=== PATIENT | male | born 1960 | race Caucasian/White ===

== ENCOUNTER 2018-04-22 16:17 | Inpatient (IN) ==
--- NOTE | 2018-04-22 16:26 | Emergency Department Report ---
Asthma HPI - General Stated Complaint: low oxygen <JanuaryRaul M - 04/22/18 18:52> Time Seen by Provider: 04/22/18 16:26 <JanuaryRaul - 04/22/18 18:52> Source: patient <Manpreet Mattson Q - 04/22/18 18:21> Mode of arrival: ambulatory <Manpreet Mattson Q - 04/22/18 18:21> Limitations: no limitations <Manpreet Mattson - 04/22/18 18:21> - History of Present Illness HPI Narrative: She is a 57-year-old male presents emergent department for evaluation of shortness of air. Patient last visit in the ER in November, at that time was diagnosed with COPD, however patient states he is unaware of that. Patient uses no control medications are inhalers at home. Patient does state he has a history of CHF and Dr. Sands is been recently turning of his diuretic, last was several weeks ago. Patient showed up today for pulmonary function testing on arrival on room air patient was 70%, patient was given albuterol treatments and Lasix on O2 however at 2 L by nasal cannula literally able to get his oxygen saturations up to 85%. Patient was referred to the ER for further evaluation. Patient states he feels like he did his normal baseline he's been short of air for weeks. Patient denies any chest pain or cough fevers or chills placed on 4 L by nasal cannula to maintain O2 sats greater than 90% <Manpreet Mattson Q - 04/22/18 18:21> - Related Data Home Medications Medication Instructions Recorded Confirmed Pantoprazole Sodium 20 mg PO ACB #30 03/16/16 04/22/18 Allopurinol [Zyloprim] 200 mg PO DAILY 11/22/17 04/22/18 Amlodipine [Norvasc] 10 mg PO DAILY 11/22/17 04/22/18 Aspirin [Adult Low Dose Aspirin EC] 81 mg PO DAILY 11/22/17 04/22/18 Celecoxib 200 mg PO DAILY 11/22/17 04/22/18 Furosemide [Lasix 20 mg Tab] 40 mg PO DAILY 11/22/17 04/22/18 Simvastatin [Zocor] 10 mg PO HS 11/22/17 04/22/18 Tramadol [Ultram] 50 mg PO QID PRN 11/22/17 04/22/18 Amoxicillin/Potassium Clav 1 each PO BID 04/22/18 04/22/18 [Amox-Clav 875-125 mg Tablet] Benazepril HCl 10 mg PO DAILY 04/22/18 04/22/18 <January,Raul 04/22/18 18:52> Allergies Allergy/AdvReac Type Severity Reaction Status Date / Time No Known Drug Allergies Allergy Unknown Verified 04/22/18 16:46 <January,Raul 04/22/18 18:52> Review of Systems Constitutional: Denies: fever, chills, weakness <Manpreet Mattson Q - 04/22/18 18 :21> Eyes: Denies: eye pain, eye discharge, vision change <Manpreet Mattson Q - 18:21> ENT: Denies: ear pain, throat pain, dental pain <Manpreet Mattson Q - 04/22/18 18 :21> Cardiovascular: Reports: dyspnea on exertion. Denies: chest pain, palpitations <Manpreet Mattson Q - 04/22/18 18:21> Respiratory: Reports: dyspnea. Denies: cough, wheezes <Manpreet Mattson Q - 03/04 18:21> Gastrointestinal: Denies: abdominal pain, nausea, vomiting <Manpreet Mattson Q - 04/22/18 18:21> Neurological: Denies: headache <Manpreet Mattson Q - 04/22/18 18:21> Psychiatric: Denies: anxiety, depression <Manpreet Mattson Q - 04/22/18 18:21> Endocrine: Denies: fatigue, heat or cold intolerance <Manpreet Mattson Q - 18:21> [facility] Patient Stated Medical History Congestive Heart Failure Yes Hypertension Yes Chronic Obstructive Pulmonary Yes Disease (COPD) Sleep Apnea Yes: no cpap Other Respiratory Yes: SYMPTOMS OF SLEEP APNEA Gastroesophageal Reflux Yes Disease Osteoarthritis Yes Other Musculoskeletal Yes: GOUT MRSA Yes: HX OF LEG <January,Raul 04/22/18 18:52> Medical History Updates: HTN. HL. GERD. Gout. Osteoarthritis. CHF. CAD < Manpreet Mattson Q - 04/22/18 16:26> - Social History Smoking status: Never smoker <Manpreet Mattson Q - 04/22/18 16:26> second hand exposure: No <Manpreet Mattson Q - 04/22/18 16:26> Substance use type: does not use <Manpreet Mattson Q - 04/22/18 16:26> Alcohol intake frequency: does not drink <Manpreet Mattson Q - 04/22/18 16:26> Does patient use chewing tobacco?: No <Prashant Mattsonn Q - 04/22/18 16:26> Physical Exam - General General appearance: alert <Prashant Mattsonn Q - 04/22/18 18:21> - ENT ENT exam: Present: normal oropharynx, mucous membranes moist, TM's normal bilaterally <Prashant Mattsonn Q - 04/22/18 18:21> - Neck Neck exam: Present: trachea midline. Absent: tenderness <Prashant Mattsonn Q - 18:21> - Chest Chest inspection: Present: symmetric chest wall rise. Absent: tenderness < Prashant Mattsonn Q - 04/22/18 18:21> - Respiratory Respiratory exam: Present: wheezes, accessory muscle use, prolonged expiratory phase. Absent: respiratory distress, stridor <Prashant Mattsonn Q - 04/22/18 18: 21> - Cardiovascular Cardiovascular exam: Present: regular rate, normal rhythm, normal heart sounds <Prashant Mattsonn Q - 04/22/18 18:21> - Abdominal Exam Abdominal exam: Present: soft. Absent: distention <Prashant Mattsonn Q - 18:21> - Skin Skin exam: Present: warm, dry <Prashant Mattsonn Q - 04/22/18 18:21> - Neurological Exam Neurological exam: Present: alert, oriented X3 <Manpreet Mattson Q - 04/22/18 18: 21> - Psychiatric Psychiatric exam: Present: normal affect, normal mood <Prashant Mattsonn Q - 04/22 18:21> Course - Consultations Consultation #1: Shakeel Telemed: Will admit for COPD exacerbation and new O2 requirement. <JanuaryJoseRaul - 04/22/18 18:50> Time: 18:44 <January,Raul - 04/22/18 18:47> Vital Signs Temperature 98.6 F 04/22/18 16:19 Pulse Rate 80 04/22/18 16:19 Respiratory Rate 28 H 08/06/18 16:19 Blood Pressure 134/61 04/22/18 16:19 Pulse Oximetry 82 L 04/22/18 16:19 Temperature 98.6 F 04/22/18 16:19 Pulse Rate 72 04/22/18 18:00 Respiratory Rate 20 04/22/18 18:10 Blood Pressure 134/63 04/22/18 17:30 Pulse Oximetry 95 04/22/18 18:10 <JanuaryRaul 04/22/18 18:52> Dyspnea - MDM Narrative Medical decision making narrative: Pt discussed with Shakeel Kelly; will admit for new O2 req and COPD exacerbation. No evidence of PE. <JanuaryRaul - 04/22/18 18:52> She does have received a total of 3 DuoNeb Solu-Medrol 125. Laboratories within became more was COPD exacerbation, rather than a CHF issue. Patient's troponin is negative. Patient originally improved was able to turn on 2 L by nasal cannula, however after going to radiology patient had a be turned back up to 3 L by nasal cannula. 3rd DuoNeb was ordered at that time. Case turned over to Dr. Raul Squires at 1820. <Manpreet Mattson - 04/22/18 18:21> - Differential Diagnosis Differential diagnosis: Likely: PE, Pneumonia, COPD exacerbation, Pulmonary edema systolic, Pulmonary edema dystolic, Pneumothorax <JanuaryRaul 18:52> - Medical Records Attestation: I reviewed the patient's medical records. <JanuaryRaul 04/22 18:52> I reviewed the patient's medical records. <Manpreet Mattson - 04/22/18 18:21> - Lab Data Attestation: I reviewed the patient's lab results. <JanuaryRaul 04/22/18 18:52> I reviewed the patient's lab results. <Manpreet Mattson - 04/22 18:21> Result diagrams: 04/22/18 16:50 04/22/18 16:50 <JanuaryRaul - 04/22/18 18:52> Lab Results 04/22/18 04/22/18 04/22/18 Range/Units 16:50 16:50 16:50 WBC 8.9 (4.5-11.0) T/MM3 RBC 4.85 (4.50-5.90) M/MM3 Hgb 13.9 (13.5-17.5) GM/DL Hct 44.7 (41-53) % MCV 92.2 (80-100) UM3 MCH 28.7 (26-34) UUG MCHC 31.1 (31-37) GM/DL RDW Std Deviation 49.9 (36.9-50.2) FL Plt Count 241 (130-400) T/MM3 MPV 9.3 L (9.4-12.4) UM3 Immature Gran % (Auto) 0.3 (0.0-0.5) % Neut % (Auto) 75.6 H (33-66) % Lymph % (Auto) 15.0 L (23-45) % Hudson % (Auto) 6.9 (0-9.0) % Eos % (Auto) 2.0 (0-4) % Baso % (Auto) 0.2 (0-2) % Neut # (Auto) 6.7 (1.8-7.7) T/MM3 Lymph # (Auto) 1.3 (1-4.8) T/MM3 Hudson # (Auto) 0.6 (0-0.8) T/MM3 Eos # (Auto) 0.2 (0-0.5) T/MM3 Baso # (Auto) 0.0 (0-0.2) T/MM3 Abs Immat Gran (auto) 0.03 (0.00-0.03) T/MM3 D-Dimer 548 H (0-230) NG/ML Turbidity < 20 (0-20) Sodium 149 H (136-146) MEQ/L Potassium 4.3 (3.6-5) MEQ/L Chloride 104 (98-107) MEQ/L Carbon Dioxide 37 H (22-30) MEQ/L Anion Gap 8 (5-15) meq/L BUN 17.0 (9-20) MG/DL Creatinine 0.9 (0.8-1.5) mg/dL Estimated Creat Clear 138 (>50) mL/min GFR Calculation 87 (>60) mL/min BUN/Creatinine Ratio 19 (6-26) RATIO Glucose 113 H (75-110) MG/DL Calculated Osmolality 289 H (261-280) MOSM/KG Calcium 8.7 (8.4-10.2) MG/DL Total Bilirubin 0.50 (0.20-1.30) MG/DL Icterus Index < 2 (0-7) AST 25 (17-59) U/L ALT 19 (1-50) U/L Alkaline Phosphatase 64 (38-126) U/L Troponin I < 0.012 (0-0.12) ng/ml NT-Pro-B Natriuret Pep 264 H (0-175) pg/mL Total Protein 6.7 (6.3-8.2) g/dL Albumin 3.7 (3.5-5.0) g/dL Globulin 3.0 (2.4-3.6) G/DL Albumin/Globulin Ratio 1.2 (1.1-2.2) RATIO Specimen Hemolysis < 15 (0-25) <04/22/18 18:52> - Radiology Data Attestation: I reviewed the patient's radiology results. <03/04 18:52> I reviewed the patient's radiology results. <[place] tap[place] 04/22/18 18:21> CTA: FINDINGS: Pulmonary arteries: Unremarkable. No pulmonary embolism. Aorta: Mild aortic calcifications. No thoracic aortic aneurysm. Lungs: Mild bibasilar dependent atelectasis. No mass. Pleural space: Unremarkable. No significant effusion. No pneumothorax. Heart: Mild to moderate coronary artery calcifications. No significant pericardial effusion. No evidence of RV dysfunction. Bones/joints: No acute fracture. No dislocation. Multilevel degenerative changes of the visualized spine. Soft tissues: Unremarkable. Lymph nodes: Unremarkable. No enlarged lymph nodes. Other findings: Visualized structures of the upper abdomen are unremarkable. IMPRESSION: 1. No CTA evidence of pulmonary embolism. 2. Mild to moderate coronary artery calcifications. 3. Other chronic findings, as above. <04/22/18 18:52> No obvious infiltrates, similar to prior chest x-ray <Manpreet Mattson 04/22/18 18:21> Disposition Clinical Impression: Hypoxemia, COPD exacerbation <04/22/18 18:50> Disposition: 02 To [facility] <04/22/18 18:52> Print Language: Mauritanian <04/22/18 18:50> Condition: Improved <04/22/18 18:50> Instructions: <04/22/18 18:52> Prescriptions: No Action Pantoprazole Sodium 20 mg PO ACB #30 Tramadol [Ultram] 50 mg PO QID PRN PRN Reason: Pain Celecoxib 200 mg PO DAILY Simvastatin [Zocor] 10 mg PO HS Furosemide [Lasix 20 mg Tab] 40 mg PO DAILY Amlodipine [Norvasc] 10 mg PO DAILY Allopurinol [Zyloprim] 200 mg PO DAILY Benazepril HCl 10 mg PO DAILY Amoxicillin/Potassium Clav [Amox-Clav 875-125 mg Tablet] 1 each PO BID Aspirin [Adult Low Dose Aspirin EC] 81 mg PO DAILY <eb 04/22/18 18:52> Referrals: Gregory Sands II, MD [Primary Care Provider] - <eb 04/22/18 18:52> Forms: <04/22/18 18:52> Time of Disposition: 18:50 <eb 04/22/18 18:50> - Seen By: physician <eb 04/22/18 18:50>
[2018-04-22] MEDS ORDERED: ALBUTEROL/IPRATROPIUM 2.5mg-0.5mg/3ml NEB AEROSOL ONE ×2 (16:40→18:03)
[2018-04-22] MEDS ORDERED: METHYLPREDNISOLONE SOD SUCC 125mg/2ml INJECTION IM ONE (17:18)
[2018-04-22] MEDS ORDERED: METHYLPREDNISOLONE SOD SUCC 125mg/2ml INJECTION IVP ONE (17:22)
[2018-04-22] MEDS: SALINE FLUSH 10ml SYRINGE IVF PRN ×2 (17:26→22:33)
[2018-04-22] MEDS ORDERED: SALINE FLUSH 10ml SYRINGE ONE (17:29)
[2018-04-22] MEDS ORDERED: IOHEXOL 350mg/ml 75ml INJECTION ONE (17:29)
[2018-04-22] MEDS ORDERED: IOHEXOL 350mg/ml 50ml INJECTION ONE (17:51)
[2018-04-22] MEDS ORDERED: AZITHROMYCIN 250 MG TABLET PO ONE (19:32)
[2018-04-22] MEDS ORDERED: ONDANSETRON 4 MG/2 ML INJECTION IVP PRN (19:32)
--- NOTE | 2018-04-22 20:17 | History & Physical Report ---
History of Present Illness Date: 04/23/18 Chief complaint: short of breath HPI: Patient seen via telemedicine with nursing assistance on 04/22/2018 Mr. Esposito is a 57yo man with h/o essential HTN, class 3 obesity, dyslipidemia , DJD s/p bilateral knee replacements, and gout who has had YANEZ for months and was in PCPs office today for it. Had ED visit earlier in the year with presumed COPD with FEV1 today 1.35L and FVC 2.34L more consistent with a restrictive process due to obesity, but wheezing so obstruction evident as well (small airway testing results not known by me). No chest pain, fevers, chills, or cough. No nausea. No medication changes except furosemide increase to 60mg PO daily for LE edema, and started on antibiotic for said MRSA infection from cx. Review of Systems All systems PM: 10-point ROS was reviewed, no additional remarkable complaints except Past Medical History Medical History Updates: HTN. HL. GERD. Gout. Osteoarthritis. CHF. CAD Family History Updates: jamal at 90 of "old age". 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) Does patient use chewing tobacco?: No Medications Home Medications Medication Instructions Recorded Confirmed Type Pantoprazole Sodium 20 mg PO ACB #30 03/16/16 04/22/18 History Allopurinol [Zyloprim] 200 mg PO DAILY 11/22/17 04/22/18 History Amlodipine [Norvasc] 10 mg PO DAILY 11/22/17 04/22/18 History Aspirin [Adult Low Dose Aspirin EC] 81 mg PO DAILY 11/22/17 04/22/18 History Celecoxib 200 mg PO DAILY 11/22/17 04/22/18 History Furosemide [Lasix 20 mg Tab] 40 mg PO DAILY 11/22/17 04/22/18 History Simvastatin [Zocor] 10 mg PO HS 11/22/17 04/22/18 History Tramadol [Ultram] 50 mg PO QID PRN 11/22/17 04/22/18 History Amoxicillin/Potassium Clav 1 each PO BID 04/22/18 04/22/18 History [Amox-Clav 875-125 mg Tablet] Benazepril HCl 10 mg PO DAILY 04/22/18 04/22/18 History Allergies Allergy/AdvReac Type Severity Reaction Status Date / Time No Known Drug Allergies Allergy Unknown Verified 04/22/18 16:46 Exam Vital Signs: Temperature 96.4 F L 04/22/18 19:22 Pulse Rate 66 04/22/18 19:22 Respiratory Rate 24 04/22/18 19:22 Blood Pressure 148/73 H 04/22/18 19:22 Pulse Oximetry 3 L 04/22/18 19:22 Telemetry Rhythm: Sinus Rhythm Height/Weight/BMI: Height 1.78 m Weight 163.4 kg - Constitutional Present: no acute distress - Routine HEENT Exam Head: Present: normocephalic, atraumatic Eye: Present: EOMI - Routine Respiratory Exam Comments: symmetrical effort with bilateral expiratory wheezing - Routine Cardiovascular Exam Present: RRR, S1, S2, no murmur - Routine Abdominal Exam Present: soft, normoactive bowel sounds - Routine Extremities Exam Present: edema. Absent: cyanosis, clubbing - Routine Neurological Exam Present: alert, oriented X3 Results - Labs CBC & Chem 7: 04/22/18 16:50 04/23/18 04:07 Assessment and Plan Assessment and Plan: 1. AECPD--admit to inpatient with solumedrol, duoneb, see below. Azithromycin per standard and note with bicarb elevation will check vbg. May need pulm consult re not only AVNI but obesity hypoventilation syndrome ?Trilogy. 2. Hypoxia POA-- supp cautiously with goal 90-97% SpO2 with likely CO2 retention. 3. Class 3 obesity BMI pending. Must lose weight. ?bariatric candidate ultimately? 4. Essential HTN--same meds. 5. Dyslipidemia on statin. 6. DJD s/p BTKAs 7. Gout on allopurinol 8. ?MRSA leg--continue prior abx if can confirm. DVT Prophylaxis: SCD's, Lovenox Resuscitation Status: Full Code - Physician Narrative Physician: Chela Staton MD Narrative: Date: 04/23/18 Time: 10:40 AM I have seen and examined the patient independently. I have reviewed the H&P above. Please see my additions below. Chief complaint: Low oxygen level History of present illness: The patient is a 57-year-old man with chronic dyspnea on exertion since this past winter. Had worsened over the past month and he came in for pulmonary function test yesterday at [facility]. It sounds like he was noted to be hypoxic and was sent to the emergency room. In the ER he underwent a chest x-ray which was essentially normal and a CTA of the chest which was only able to look at the large vessels but could not look at the smaller pulmonary arteries. No PE was seen. The patient denied any cough other than yesterday after the pulmonary function test. He states he's been sleeping in a recliner since last May when his mother moved in with him after his father's . He states he slept in a recliner because he wanted to be on the same floor as his mother but then he also noted that he slept better in the recliner. He has chronic lower extremity edema right leg worse than left and his right leg has been seeping recently. He was initially placed on Bactrim and then more recently on Augmentin. He denies any fevers chills or sweats. He thinks he had a wound culture as an outpatient. He denies any chest pains or palpitations. He denies any lightheadedness or syncope. He denies any history of DVT or PE. He denies any previous heart or lung issues. He states that last week he was very short of breath with exertion and sat down in a chair and it took a long time for his shortness of breath to resolve. He states he almost called 911 but then his symptoms improved. He then saw his primary care physician, Dr. Sands who referred him for pulmonary function testing. Comprehensive review of systems: He has some pain where he has wounds on his right lower extremity. He does snore loudly. He has some occasional night sweats. Otherwise cooperative review of systems is negative other than the above in history of present illness. Past medical history: Pneumonia in the winter of 2018, not requiring hospitalization. Hypertension. Hyperlipidemia. GERD. Gout. Osteoarthritis. Chronic lower extremity edema, likely secondary to venous stasis. History of lower extremity wounds for which she has gone to the wound care center Echocardiogram 01/10/2018 with chordal JARRET with increased for velocity of 2 ms through the LVOT during Valsalva. Normal systolic function with EF of 55-60% Myocardial perfusion stress test on 01/10/2018 was essentially normal and recommendations were "no changes" Past surgical history: Colonoscopy 02/18/2018 for hyperplastic polyp, EGD in March 2016 revealing mild gastritis, attempted repair of a left fifth toe fracture which was unsuccessful. Bilateral carpal tunnel surgery. Bilateral knee replacement. Hernia repair. Medications are reviewed. He states he is also on escitalopram and metoprolol. I 've asked his nurse to update his med list Allergies: No known drug allergies Social history: The patient states he has never smoked. He does use chewing tobacco. He is single. 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 Family history: Father had hypertension and CHF and at age 90. Mother has hypertension and dementia Physical exam: Afebrile, O2 sat yesterday was 82% on 2 L requiring increased O2 to 4 L. Most recently O2 sat is 90% on 2 L. Blood pressure 149/71. Pulse 80. Temperature 98.1 In general he is alert and oriented and in no acute distress. HEENT reveals sclerae to be anicteric, pupils are equal, or Dilip moist. Neck is supple and obese. He has mild carotid bruits. Cardiovascular reveals a regular rate and rhythm with a 2/6 systolic murmur. Chest is clear to auscultation bilaterally. Abdomen is soft, obese, nontender, nondistended with positive bowel sounds. Extremities reveal +1-2 lower extremity edema of the right leg. He has skin breakdown all along the anterior hearn and posterior calf. He has chronic venous stasis changes of the bilateral lower extremities. Left lower should be reveals trace to +1 edema. No skin breakdown on the left leg. Neurologic reveals him to be alert and oriented 3. No focal deficits. ABG reveals pH of 7.38, PCO2 58, PO2 62 on 2 L. D-dimer elevated at 548. Basic metabolic profile today is normal other than glucose of 178. Troponin yesterday was 0.012. ProBNP was 264 which is mildly elevated. CTA chest 04/22/2018 Pulmonary arteries: Exam is diagnostic to the main pulmonary arterial level. There is no large or central saddle embolus. The segmental and subsegmental pulmonary arteries cannot be well evaluated due to contrast bolus. Other findings: No acute pneumonia, pleural effusion or pneumothorax. No concerning pulmonary nodules or masses. The central airways are patent. No axillary or mediastinal lymphadenopathy. Heart size is normal. Coronary artery calcifications. No pericardial effusion. The upper abdomen shows no acute findings. Impression: No large or central pulmonary embolus. Impression Hypoxic and hypercapnic respiratory failure, likely chronic, unknown how much is acute Chronic dyspnea, worsening over the past 1 month Possible sleep apnea versus obesity hypoventilation syndrome Chronic lower extremity edema likely secondary to venous stasis Right lower extremity wounds with drainage Morbid obesity Hypertension Osteoarthritis Gout Hyperglycemia-likely worsened with steroids Plan Consult Dr. Ann for respiratory failure with hypoxia and hypercapnia. I think the patient would likely benefit from BiPAP. Due to the patient's elevated d-dimer and CTA which did not look at the smaller arteries, will check venous Doppler of the legs. If negative for DVT will consider repeat CTA Place on telemetry Check EKG Discontinue steroids, the patient is a lifelong nonsmoker, doubt COPD obtain results of pulmonary function testing done yesterday Consult wound and skin regarding skin breakdown on the right lower extremity Obtain wound culture results if available Update med list Check Accu-Cheks and hemoglobin A1c regarding hyperglycemia Dietary consult Patient may benefit from a different antihypertensive other than Norvasc because of his lower extremity edema BMP and CBC tomorrow Hospital Course Summary Disclaimer: The visit summary below is not to be considered part of the above Progress Note.
[2018-04-22 20:20] VITALS: BMI 50.8
[2018-04-22] MEDS: SIMVASTATIN 10 MG TABLET PO SCH (21:31)
[2018-04-22] MEDS: TRAMADOL 50 MG TABLET PO PRN (22:32)
[2018-04-22] MEDS: METHYLPREDNISOLONE SOD SUCC 125mg/2ml INJECTION IVP SCH (22:33)
[2018-04-22] MEDS: ALBUTEROL/IPRATROPIUM 2.5mg-0.5mg/3ml NEB AEROSOL SCH (22:44)
[2018-04-22] MEDS ORDERED: METHYLPREDNISOLONE SOD SUCC IV ONE (23:00)
[2018-04-22] MEDS ORDERED: NS IV ONE (23:00)
[2018-04-23] MEDS: ALBUTEROL/IPRATROPIUM 2.5mg-0.5mg/3ml NEB AEROSOL SCH ×6 (02:19→23:53)
[2018-04-23] MEDS: METHYLPREDNISOLONE SOD SUCC 125mg/2ml INJECTION IVP SCH ×2 (02:35→09:04)
[2018-04-23] MEDS: TRAMADOL 50 MG TABLET PO PRN ×2 (06:05→15:30)
[2018-04-23] MEDS: PANTOPRAZOLE 20 MG TABLET PO SCH (06:05)
--- NOTE | 2018-04-23 07:58 | CT Scan Report ---
Indication: hypoxia dyspnea requiring oxygen elevated d-dimer PROCEDURE: CT angio pulm emboli: Encounter: Initial Comparison: None Technique: Axial CT pulmonary angiographic phase images were performed through the chest after the administration of intravenous contrast. Coronal and Sagittal MIP reconstructed images were created and reviewed. Automated Exposure Control and Iterative Reconstruction dose reducing techniques were utilized. Contrast: Omnipaque 350 50 mL Findings: Pulmonary arteries: Exam is diagnostic to the main pulmonary arterial level. There is no large or central saddle embolus. The segmental and subsegmental pulmonary arteries cannot be well evaluated due to contrast bolus. Other findings: No acute pneumonia, pleural effusion or pneumothorax. No concerning pulmonary nodules or masses. The central airways are patent. No axillary or mediastinal lymphadenopathy. Heart size is normal. Coronary artery calcifications. No pericardial effusion. The upper abdomen shows no acute findings. Impression: No large or central pulmonary embolus. There is a preliminary report by [facility]. .
--- NOTE | 2018-04-23 07:58 | XRay Report ---
Indication: dyspnea, oxygen requiring PROCEDURE: XR chest 1V: Encounter: Initial Comparison: November 22, 2017 FINDINGS: The lungs are clear. There is no abnormal airspace opacity, pleural effusion or pneumothorax identified. The heart size, pulmonary vasculature and mediastinum are within normal limits. No significant skeletal abnormality is seen. IMPRESSION: No acute cardiopulmonary abnormality. .
[2018-04-23] MEDS ORDERED: BENAZEPRIL 10 MG TABLET PO SCH ×2 (09:00→21:00)
[2018-04-23] MEDS: FUROSEMIDE 40 MG/4 ML INJECTION IVP SCH (09:03)
[2018-04-23] MEDS: ENOXAPARIN 40 MG/0.4 ML INJECTION SQ SCH (09:04)
[2018-04-23] MEDS: ASPIRIN *EC* 81 MG TABLET PO SCH (09:04)
[2018-04-23] MEDS: ALLOPURINOL 100 MG TABLET PO SCH (09:05)
[2018-04-23] MEDS ORDERED: ALBUTEROL/IPRATROPIUM 2.5mg-0.5mg/3ml NEB AEROSOL PRN (09:05)
[2018-04-23] MEDS ORDERED: INSULIN ASPART 100unit/ml INJECTION SQ PRN (11:11)
[2018-04-23] MEDS ORDERED: DEXTROSE 50% SYRINGE 50ml (1 AMP) IVP PRN (11:11)
[2018-04-23] MEDS ORDERED: GLUCOSE ORAL GEL 40% 37.5gm PO PRN (11:11)
--- NOTE | 2018-04-23 13:13 | Pulmonology Consult Note ---
History of Present Illness Consult date: 04/23/18 Requesting physician: Chela Staton Reason for consult: dyspnea, COPD, obstructive sleep apnea Chief complaint: short of breath History of present illness: History of present illness: The patient is a 57-year-old man with chronic dyspnea on exertion for at least the past year or more. He has a lot of dust exposure through his work, including moldy grains, flour dusts, and noxious fumes. Had worsened over the past month and he came in for pulmonary function test yesterday at [facility]. He was seen in the ER due to dyspnea. In the ER he underwent a chest x-ray which was essentially normal and a CTA of the chest which showed no PE. The patient has mild cough and a small amount of sputum. He states he's been sleeping in a recliner since last May when his mother moved in with him after his father's . He states he slept in a recliner because he wanted to be on the same floor as his mother but then he also noted that he slept better in the recliner. He has chronic lower extremity edema right leg worse than left and his right leg has been seeping recently. He was initially placed on Bactrim and then more recently on Augmentin. He denies any fevers chills or sweats. He thinks he had a wound culture as an outpatient. He denies any chest pains or palpitations. He denies any lightheadedness or syncope. He denies any history of DVT or PE. He denies any previous heart or lung issues. He states his family has told him he needs to have a sleep study to get on CPAP. He states that last week he was very short of breath with exertion and sat down in a chair and it took a long time for his shortness of breath to resolve. He states he almost called 911 but then his symptoms improved. He then saw his primary care physician, Dr. Sands who referred him for pulmonary function testing. Comprehensive review of systems: He has some pain where he has wounds on his right lower extremity. He does snore loudly. He has some occasional night sweats. Otherwise cooperative review of systems is negative other than the above in history of present illness. Past medical history: Pneumonia in the winter of 2018, not requiring hospitalization. Hypertension. Hyperlipidemia. GERD. Gout. Osteoarthritis. Chronic lower extremity edema, likely secondary to venous stasis. History of lower extremity wounds for which she has gone to the wound care center Echocardiogram 01/10/2018 with chordal JARRET with increased for velocity of 2 ms through the LVOT during Valsalva. Normal systolic function with EF of 55-60% Myocardial perfusion stress test on 01/10/2018 was essentially normal and recommendations were "no changes" Past surgical history: Colonoscopy 02/18/2018 for hyperplastic polyp, EGD in March 2016 revealing mild gastritis, attempted repair of a left fifth toe fracture which was unsuccessful. Bilateral carpal tunnel surgery. Bilateral knee replacement. Hernia repair. Medications are reviewed. He states he is also on escitalopram and metoprolol. I 've asked his nurse to update his med list Allergies: No known drug allergies Social history: The patient states he has never smoked. He does use chewing tobacco. He is single. 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 Family history: Father had hypertension and CHF and at age 90. Mother has hypertension and dementia Review of Systems All systems: reviewed and no additional remarkable complaints except as stated PFSH Patient Stated Medical History Congestive Heart Failure Yes Hypertension Yes Chronic Obstructive Pulmonary Yes Disease (COPD) Sleep Apnea Yes: no cpap Other Respiratory Yes: SYMPTOMS OF SLEEP APNEA Gastroesophageal Reflux Yes Disease Osteoarthritis Yes Other Musculoskeletal Yes: GOUT MRSA Yes: HX OF LEG Medical History Updates: HTN. HL. GERD. Gout. Osteoarthritis. CHF. CAD Family History Updates: jamal at 90 of "old age". 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 [employer]) Alcohol intake frequency: does not drink Does patient use chewing tobacco?: No Medications Home Medications Medication Instructions Recorded Confirmed Type Pantoprazole Sodium 20 mg PO ACB #30 03/16/16 04/22/18 History Allopurinol [Zyloprim] 200 mg PO DAILY 11/22/17 04/22/18 History Amlodipine [Norvasc] 10 mg PO DAILY 11/22/17 04/22/18 History Aspirin [Adult Low Dose Aspirin EC] 81 mg PO DAILY 11/22/17 04/22/18 History Celecoxib 200 mg PO DAILY 11/22/17 04/22/18 History Furosemide [Lasix 20 mg Tab] 40 mg PO DAILY 11/22/17 04/22/18 History Simvastatin [Zocor] 10 mg PO HS 11/22/17 04/22/18 History Tramadol [Ultram] 50 mg PO QID PRN 11/22/17 04/22/18 History Amoxicillin/Potassium Clav 1 each PO BID 04/22/18 04/22/18 History [Amox-Clav 875-125 mg Tablet] Benazepril HCl 10 mg PO DAILY 04/22/18 04/22/18 History Allergies Allergy/AdvReac Type Severity Reaction Status Date / Time No Known Drug Allergies Allergy Unknown Verified 04/22/18 16:46 Exam Vital signs: Temperature 96.2 F L 04/23/18 11:36 Pulse Rate 80 04/23/18 11:36 Respiratory Rate 18 04/23/18 11:36 Blood Pressure 123/65 04/23/18 11:36 Pulse Oximetry 91 04/23/18 11:36 - Constitutional no acute distress, obese - Routine HEENT Exam Head: Present: normocephalic, atraumatic ENT: Present: mucous membranes moist - Routine Neck Exam Present: supple, full ROM - Routine Respiratory Exam Present: decreased breath sounds, prolonged expiratory phase. Absent: accessory muscle use - Routine Cardiovascular Exam Present: RRR - Routine Abdominal Exam Present: soft. Absent: guarding - Routine Extremities Exam Present: edema. Absent: cyanosis, clubbing - Routine Skin Exam Absent: rash - Routine Neurological Exam Present: alert, oriented X3. Absent: altered mental status Results - Laboratory Findings CBC and BMP: 04/22/18 16:50 04/23/18 04:07 ABG ABG pH 7.380 (7.350-7.450) 04/23/18 08:34 ABG pCO2 58 MMHG (34.0-45.0) H 04/23/18 08:34 ABG pO2 62.3 MMHG (80.0-100.0) L 04/23/18 08:34 ABG O2 Saturation 90.3 % (95.0-98.0) L 04/23/18 08:34 PT/INR, D-dimer D-Dimer 548 NG/ML (0-230) H 04/22/18 16:50 Abnormal lab findings: Abnormal Labs 04/22/18 04/22/18 04/22/18 16:50 16:50 16:50 MPV 9.3 L Neut % (Auto) 75.6 H Lymph % (Auto) 15.0 L D-Dimer 548 H ABG pCO2 ABG pO2 ABG HCO3 ABG Total CO2 ABG O2 Saturation ABG Base Excess VBG pH VBG pCO2 VBG pO2 VBG HCO3 VBG Total CO2 Sodium 149 H Carbon Dioxide 37 H Creatinine Glucose 113 H Calculated Osmolality 289 H NT-Pro-B Natriuret Pep 264 H 04/23/18 04/23/18 04/23/18 04:07 04:07 08:34 MPV Neut % (Auto) Lymph % (Auto) D-Dimer ABG pCO2 58 H ABG pO2 62.3 L ABG HCO3 34.3 H ABG Total CO2 36.1 H ABG O2 Saturation 90.3 L ABG Base Excess 7.2 H VBG pH 7.300 L VBG pCO2 69.1 H VBG pO2 59.5 H VBG HCO3 34.0 H VBG Total CO2 36.1 H Sodium Carbon Dioxide 31 H Creatinine 0.6 L D Glucose 178 H Calculated Osmolality 284 H NT-Pro-B Natriuret Pep - Diagnostic Findings CT scan - chest: report reviewed Assessment and Plan (1) Acute and chronic respiratory failure with hypercapnia Status: Acute Assessment and plan: This is a patient with baseline hypercapnic respiratory failure, pCO2 58-69. The underlying cause appears to be severe airflow obstruction in the setting of asthma/copd overlap syndrome. He has a large amount of dust exposure at work, including grain dust. I recommend starting NIPPV at home. He will require a Trilogy home vent to mask. AVAPS-AE would be an appropriate setup for this patient. Use of home [id number] would benefit this patient by reducing his risk of recurrent hospitalization and . Current Visit: Yes (2) Asthma-COPD overlap syndrome Status: Acute Assessment and plan: I recommend continuing systemic corticosteroids in the form of prednisone 40 mg daily, with taper as an outpatient. I recommend startin ICS/LABA therapy with Symbicort 160, 2 puffs BID. Continue nebulized albuterol/iprat QID as needed for breakthrough symptoms. Recommend avoidance of dust and noxious odors at work. Hopefully we can wean his supplemental O2. His DLCO is 99% pred, so I am hopefully this can be accomplished. Current Visit: Yes - Time Spent With Patient Total time spent is greater than 50% in coordination of care (as documented) at patient's floor/unit and/or counseling patient: 25 - 35 minutes
[2018-04-23] MEDS ORDERED: PredniSONE 20 MG TABLET PO ONE (13:50)
--- NOTE | 2018-04-23 14:03 | Ultrasound Report ---
Indication: bilat LE edema, hypoxia, rule out dvt PROCEDURE: US venous doppler LE BI: Encounter: Initial Comparison: None Technique: Color Doppler duplex and grayscale sonographic imaging of both lower extremities was performed. Findings: There is no evidence for acute deep venous thrombosis in either thigh. Specifically, serial graded compression was performed from the inguinal ligament to the popliteal bifurcation, bilaterally, demonstrating appropriate compressibility of the deep venous system. In addition, color and pulsed Doppler demonstrate appropriate spontaneous flow, variation with respiration, and augmentation with calf compression. At the ankle, normal flow is identified in the posterior tibial veins; these vessels are also normal in caliber. Impression: No evidence of acute DVT in either lower limb. .
[2018-04-23] MEDS: ARFORMOTEROL NEB 15mcg/2ml AEROSOL SCH (14:30)
[2018-04-23] MEDS: BUDESONIDE INH.SOLN 0.5mg/2ml NEB AEROSOL SCH (14:40)
--- NOTE | 2018-04-23 16:57 | Wound Care Progress Note ---
Wound Center Progress Note: Pt seen for wound consultation r/t right leg ulcers. Pt resting in bed, no complaints of pain. Pt in contact precautions for MRSA. Pt reports he has had bilateral lower leg edema for years. At home when he has sores on his legs open up he applies Neosporin, Coban, and compression stockings. Pt states he has had the wounds on his R lower leg for about 3 weeks. Bilateral lower legs: hemosiderin staining, +1 edema. R anterior/medial lower leg: scattered areas of crusts, sloughing dry skin, no open areas, no weeping. Composite measurement of R lower leg 18 (L) x 19 W) x 0.1 (D). Pt reports his legs are better than they use to be. Recommendations: moisturize bilateral lower legs daily, elevate , and continue compression as tolerated, elevate legs while in chair/bed.
--- NOTE | 2018-04-23 18:23 | Echocardiogram ---
DATE OF PROCEDURE April 23, 2018 This is a two-dimensional echo with spectral Doppler, color-flow and M-mode. It was obtained in a patient with hypoxia edema. Left atrium is dilated. Left ventricular end-diastolic dimension is normal. Left ventricular wall thickness increased. LV systolic function is normal with ejection fraction of about 67%. Left ventricular outflow tract obstruction is possibly present with peak gradient of 50 and mean gradient of 24. Right atrium is dilated. Right ventricle is dilated. Aortic root dimension is normal. Mitral valve is morphologically normal with mild mitral regurgitation. Aortic valve is a trileaflet structure with no stenosis or insufficiency. Tricuspid valve shows mild tricuspid regurgitation with severe pulmonary hypertension with estimated pulmonary artery systolic pressure of 69. Pulmonary valve shows mild pulmonary insufficiency. There is no pericardial effusion. IMPRESSION 1. Biatrial dilation. 2. Right ventricular dilation. 3. Left ventricular hypertrophy with possible outflow obstruction with peak gradient of 50 and mean gradient of 24. 5. Normal LV systolic function with ejection fraction of about 67%. 6. Mild mitral regurgitation. 7. Mild tricuspid regurgitation with severe pulmonary hypertension with estimated pulmonary artery systolic pressure of 69. 8. Mild pulmonary insufficiency. MTDD
[2018-04-23] MEDS: SIMVASTATIN 10 MG TABLET PO SCH (20:58)
[2018-04-24] MEDS: TRAMADOL 50 MG TABLET PO PRN ×3 (00:03→19:28)
[2018-04-24] MEDS: PANTOPRAZOLE 20 MG TABLET PO SCH ×2 (05:16→06:10)
[2018-04-24] MEDS: ALBUTEROL/IPRATROPIUM 2.5mg-0.5mg/3ml NEB AEROSOL SCH ×5 (07:15→23:32)
[2018-04-24] MEDS: BUDESONIDE INH.SOLN 0.5mg/2ml NEB AEROSOL SCH ×2 (07:15→20:30)
[2018-04-24] MEDS: FUROSEMIDE 40 MG/4 ML INJECTION IVP SCH (08:30)
[2018-04-24] MEDS: ENOXAPARIN 40 MG/0.4 ML INJECTION SQ SCH (08:30)
[2018-04-24] MEDS: ASPIRIN *EC* 81 MG TABLET PO SCH (08:31)
[2018-04-24] MEDS: PredniSONE 20 MG TABLET PO SCH (08:31)
[2018-04-24] MEDS: ALLOPURINOL 100 MG TABLET PO SCH (08:31)
[2018-04-24] MEDS: ESCITALOPRAM 10 MG TABLET PO SCH (08:31)
[2018-04-24] MEDS: ARFORMOTEROL NEB 15mcg/2ml AEROSOL SCH ×2 (10:25→20:30)
--- NOTE | 2018-04-24 16:06 | Progress Note ---
- Date 04/24/18 Subjective: The patient was seen this afternoon in his room. He states he is breathing better. He states that his right leg is no longer weeping and feels better. He is eating and drinking okay. He has not had a bowel movement since admission, but states he had a large one just prior to admission. He is urinating okay. He denies any pain other than in his low back. He states he thinks it is from the bed. His low back pain is chronic, but it was worse last night than usual. Dr. Ann saw him yesterday and recommends a Trilogy home vent. The patient is willing to try this. We'll try BiPAP tonight. Objective Vital signs: Temperature 96.2 F L 04/24/18 12:03 Pulse Rate 62 04/24/18 15:49 Respiratory Rate 22 04/24/18 12:03 Blood Pressure 122/79 04/24/18 12:03 Pulse Oximetry 92 04/24/18 16:00 Height/Weight/BMI: Height 1.78 m Weight 160.2 kg Body Mass Index 50.8 Comments: Afebrile, blood pressure 122/79, pulse 62, O2 sat 94% Weight is stable at 160.2 kg GEN-alert, oriented, no acute distress CV-regular rate and rhythm CHEST-and expiratory wheezes throughout ABD-soft, obese, nontender, positive bowel sounds -no Michaud EXT-edema in the feet and legs has resolved. Right leg is no longer weeping. Right leg is no longer erythematous or with increased warmth. NEURO-no focal deficits SKIN-warm and dry, he has some mild crusty scales over his right anterior hearn where he did have skin breakdown with weeping. This has improved. Results - Labs CBC & Chem 7: 04/24/18 05:09 04/24/18 05:09 - ABG Interpretation ABG results: 04/23/18 04/23/18 04:07 08:34 ABG pH 7.380 ABG pCO2 58 H ABG pO2 62.3 L ABG HCO3 34.3 H ABG Total CO2 36.1 H ABG O2 Saturation 90.3 L ABG Base Excess 7.2 H VBG pH 7.300 L VBG pCO2 69.1 H VBG pO2 59.5 H VBG HCO3 34.0 H VBG Total CO2 36.1 H VBG O2 Saturation 86.3 VBG Base Excess 4.9 - Echocardiogram History of Echocardiogram: IMPRESSION. 1. Biatrial dilation. 2. Right ventricular dilation. 3. Left ventricular hypertrophy with possible outflow obstruction with peak gradient of 50 and mean gradient of 24. 5. Normal LV systolic function with ejection fraction of about 67%. 6. Mild mitral regurgitation. 7. Mild tricuspid regurgitation with severe pulmonary hypertension with estimated pulmonary artery systolic pressure of 69. 8. Mild pulmonary insufficiency. - Impressions Bilateral venous Dopplers negative for DVT Assessment and Plan (1) Hypoxemia Current visit: Yes Status: Acute (2) COPD exacerbation Current visit: Yes Status: Acute (3) Obesity Current visit: Yes Status: Acute (4) Essential hypertension Current visit: Yes Status: Acute (5) Dyslipidemia Current visit: Yes Status: Acute (6) Gout Current visit: Yes Status: Acute Assessment and Plan: Impression Asthma COPD overlap-likely due to dust and grain exposure, patient is a nonsmoker hypoxic and hypercapnic respiratory failure-hypercapnia is likely chronic. Hypoxia is likely acute to some extent. Probable obstructive sleep apnea Severe pulmonary hypertension on echocardiogram Biatrial dilatation, right ventricular dilation, LVH with possible outflow obstruction on echocardiogram. Normal systolic function. EF 67%. Venous insufficiency Right lower extremity wound infection. Culture from the clinic showed propionibacterium (beta-lactamase negative), and Enterococcus faecalis sensitive to penicillin-we'll restart the Augmentin that he was on as an outpatient. He states his leg is much improved. He does not have MRSA. Will DC precautions Hypertension-currently on THO inhibitor and beta darrion. Norvasc is on hold. Osteoarthritis Gout Hyperglycemia secondary to steroids Morbid obesity Plan Dr. Ann instructions regarding acute and chronic respiratory failure with hypercapnia -This is a patient with baseline hypercapnic respiratory failure, pCO2 58-69. The underlying cause appears to be severe airflow obstruction in the setting of asthma/copd overlap syndrome. He has a large amount of dust exposure at work, including grain dust. I recommend starting NIPPV at home. He will require a Trilogy home vent to mask. AVAPS-AE would be an appropriate setup for this patient. Use of home [id number] would benefit this patient by reducing his risk of recurrent hospitalization and . Dr. Ann recommendations regarding asthma COPD overlap syndrome -I recommend continuing systemic corticosteroids in the form of prednisone 40 mg daily, with taper as an outpatient. I recommend startin ICS/LABA therapy with Symbicort 160, 2 puffs BID. Continue nebulized albuterol/iprat QID as needed for breakthrough symptoms. Recommend avoidance of dust and noxious odors at work. Hopefully we can wean his supplemental O2. His DLCO is 99% pred , so I am hopefully this can be accomplished. Titrate oxygen as able. Start BiPAP tonight with settings per RT Ambulatory oximetry in the morning Restart the patient's home Augmentin for right anterior hearn wound infection. This has markedly improved. Monitor blood pressure. Norvasc is on hold. If blood pressure is elevated, consider increasing THO inhibitor or beta darrion. Norvasc may be contributing to lower extremity edema. Start scheduled tramadol 100 mg at at bedtime for low back pain Recheck basic metabolic profile tomorrow Discussed with Dr. Ann and the patient's nurse DVT Prophylaxis: SCD's, Lovenox Resuscitation Status: Full Code - Physician Narrative Narrative: Date: 04/24/18 Time: 1603 Hospital Course Summary Disclaimer: The visit summary below is not to be considered part of the above Progress Note.
[2018-04-24] MEDS: AMOX/CLAV 875 MG/125 MG TABLET PO SCH (18:27)
[2018-04-24] MEDS ORDERED: BENAZEPRIL 10 MG TABLET PO SCH (21:00)
[2018-04-24] MEDS ORDERED: TRAMADOL 50 MG TABLET PO SCH (21:00)
[2018-04-24] MEDS: SIMVASTATIN 10 MG TABLET PO SCH (21:36)
[2018-04-25] MEDS: PANTOPRAZOLE 20 MG TABLET PO SCH (05:36)
[2018-04-25] MEDS: TRAMADOL 50 MG TABLET PO PRN (05:40)
[2018-04-25] MEDS: ALLOPURINOL 100 MG TABLET PO SCH (08:18)
[2018-04-25] MEDS: ESCITALOPRAM 10 MG TABLET PO SCH (08:18)
[2018-04-25] MEDS: ASPIRIN *EC* 81 MG TABLET PO SCH (08:20)
[2018-04-25] MEDS: PredniSONE 20 MG TABLET PO SCH (08:22)
[2018-04-25] MEDS: AMOX/CLAV 875 MG/125 MG TABLET PO SCH (08:32)
[2018-04-25] MEDS ORDERED: ENOXAPARIN 40 MG/0.4 ML INJECTION SQ SCH (09:00)
[2018-04-25] MEDS ORDERED: FUROSEMIDE 40 MG TABLET PO SCH (09:00)
[2018-04-25] MEDS: BUDESONIDE INH.SOLN 0.5mg/2ml NEB AEROSOL SCH (10:53)
[2018-04-25] MEDS: ARFORMOTEROL NEB 15mcg/2ml AEROSOL SCH (10:54)
--- NOTE | 2018-04-25 11:41 | Pulmonology Progress Note ---
Subjective Principal diagnosis: asthma/COPD Interval history: slept with BIPAP last night. IPAP 18, EPAP 8. thought the pressure was a little high. breathing improved. still requiring O2 to keep sat >90% and will likely need at home. 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 Exam Vital signs: Temperature 96.5 F L 04/25/18 07:47 Pulse Rate 64 04/25/18 11:17 Respiratory Rate 24 04/25/18 10:54 Blood Pressure 139/85 04/25/18 07:47 Pulse Oximetry 91 04/25/18 11:17 Inpatient Medications: Generic Name Dose Route Start Last Admin Trade Name Freq PRN Reason Stop Dose Admin Albuterol/Ipratropium 3 ml 04/23/18 11:00 04/24/18 23:32 Duoneb AEROSOL 3 ml RTQID HA Administration Albuterol/Ipratropium 3 ml 04/23/18 09:05 Duoneb AEROSOL PRN PRN Allopurinol 200 mg 04/23/18 09:00 04/25/18 08:18 Zyloprim PO 200 mg DAILY HA Administration Amoxicillin/Clavulanate Potassium 875 mg 04/24/18 17:30 04/25/18 08:32 Augmentin 875/125 PO 875 mg BIDWM HA Administration Arformoterol Tartrate 15 mcg 04/23/18 19:00 04/25/18 10:54 Brovana Neb AEROSOL 15 mcg RTBID HA Administration Aspirin 81 mg 04/23/18 09:00 04/25/18 08:20 Ecotrin PO 81 mg DAILY HA Administration Benazepril HCl 20 mg 04/24/18 21:00 04/24/18 21:36 Lotensin PO 20 mg HS HA Administration Budesonide 0.5 mg 04/23/18 19:00 04/25/18 10:53 Pulmicort Inhalation AEROSOL 0.5 mg RTBID HA Administration Enoxaparin Sodium 40 mg 04/25/18 09:00 04/25/18 08:22 Lovenox SQ 40 mg DAILY HA Administration Escitalopram Oxalate 10 mg 04/24/18 09:00 04/25/18 08:18 Lexapro PO 10 mg DAILY HA Administration Furosemide 40 mg 04/25/18 09:00 04/25/18 08:19 Lasix 40 Mg Tab PO 40 mg DAILY HA Administration Magnesium Hydroxide 30 ml 04/24/18 14:14 04/24/18 14:25 Mom PO 30 ml DAILY PRN Administration Constipation Metoprolol Tartrate 25 mg 04/23/18 17:30 04/25/18 09:37 Lopressor PO 25 mg BIDWM HA Administration Pantoprazole Sodium 20 mg 04/23/18 06:30 04/25/18 05:36 Protonix PO 20 mg ACB HA Administration Prednisone 40 mg 04/24/18 08:00 04/25/18 08:22 Deltasone 20 Mg PO 40 mg WB HA Administration Simvastatin 10 mg 04/22/18 21:00 04/24/18 21:36 Zocor PO 10 mg HS HA Administration Sodium Chloride 10 - 80 ml 04/22/18 16:40 04/22/18 22:33 Iv Flush IVF 10 ml PRN PRN Administration Flushing Tramadol HCl 50 mg 04/22/18 20:25 04/25/18 05:40 Ultram PO 50 mg QID PRN Administration Pain Tramadol HCl 100 mg 04/24/18 21:00 04/24/18 22:01 Ultram PO 50 mg HS HA Administration Discontinued Medications Generic Name Dose Route Start Last Admin Trade Name Freq PRN Reason Stop Dose Admin Albuterol/Ipratropium 6 ml 04/22/18 16:40 04/22/18 16:52 Duoneb AEROSOL 04/22/18 16:41 6 ml O ONE Administration Albuterol/Ipratropium 3 ml 04/22/18 18:03 04/22/18 18:10 Duoneb AEROSOL 04/22/18 18:04 3 ml O ONE Administration Albuterol/Ipratropium 3 ml 04/22/18 21:00 04/23/18 07:32 Duoneb AEROSOL 3 ml Q4H HA Administration Azithromycin 500 mg 04/22/18 19:32 04/22/18 20:35 Zithromax PO 04/22/18 19:33 500 mg O ONE Administration Benazepril HCl 10 mg 04/23/18 09:00 04/22/18 21:31 Lotensin PO 10 mg DAILY HA Administration Benazepril HCl 10 mg 04/23/18 21:00 04/23/18 20:58 Lotensin PO 10 mg HS HA Administration Budesonide/Formoterol Fumarate 2 puff 04/23/18 19:00 Symbicort Inhaler ORAL INH RTBID HA Dextrose 10 ml 04/23/18 11:11 D50%W IVP PRN PRN Hypoglycemia Enoxaparin Sodium 40 mg 04/23/18 09:00 04/24/18 08:30 Lovenox SQ 40 mg DAILY HA Administration Furosemide 40 mg 04/23/18 09:00 04/24/18 08:30 Lasix 40 Mg/4 Ml IVP 40 mg DAILY HA Administration Glucose 37.5 gm 04/23/18 11:11 Glutose 15 PO PRN PRN Hypoglycemia Methylprednisolone Sodium 101 mls @ 200 mls/hr 04/22/18 23:00 Succinate 62.5 mg/ Sodium IV 04/22/18 23:30 Chloride Q6H ONE Insulin Aspart 1 - 5 unit 04/23/18 11:11 04/23/18 15:14 Novolog SQ 1 unit SS PRN Administration Hyperglycemia Protocol Methylprednisolone Sodium Succinate 125 mg 04/22/18 17:18 04/22/18 17:24 Solu-Medrol IM 04/22/18 17:19 Not Given O ONE Methylprednisolone Sodium Succinate 125 mg 04/22/18 17:22 04/22/18 17:24 Solu-Medrol IVP 04/22/18 17:23 125 mg O ONE Administration Methylprednisolone Sodium Succinate 62.5 mg 04/22/18 23:00 04/23/18 09:04 Solu-Medrol IVP 62.5 mg Q6HR HA Administration Ondansetron HCl 4 mg 04/22/18 19:32 Zofran IVP Q6H PRN Nausea &/or vomiting Prednisone 20 mg 04/23/18 13:50 04/23/18 15:14 Deltasone 20 Mg PO 04/23/18 13:51 20 mg O ONE Administration - Constitutional no acute distress, obese - Routine Neck Exam Present: supple - Routine Respiratory Exam Present: decreased breath sounds, prolonged expiratory phase. Absent: accessory muscle use - Routine Cardiovascular Exam Present: RRR - Routine Extremities Exam Present: edema. Absent: cyanosis Results - Laboratory Findings Laboratory: Laboratory Results - last 48 hr 04/23/18 04/23/18 04/24/18 14:13 21:06 05:09 WBC 15.2 H D RBC 4.66 Hgb 13.2 L Hct 42.6 MCV 91.4 MCH 28.3 MCHC 31.0 RDW Std Deviation 49.7 Plt Count 245 MPV 9.8 Immature Gran % (Auto) Not performed Neut % (Auto) Not performed Lymph % (Auto) Not performed [place] % (Auto) Not performed Eos % (Auto) Not performed Baso % (Auto) Not performed Neut # (Auto) Not performed Lymph # (Auto) Not performed [place] # (Auto) Not performed Eos # (Auto) Not performed Baso # (Auto) Not performed Abs Immat Gran (auto) Not performed Neutrophils % (Manual) 90.0 H Band Neutrophils % 2.0 Lymphocytes % (Manual) 5.0 L Monocytes % (Manual) 3.0 Neutrophils # (Manual) 13.7 H Band Neutrophils # 0.3 Lymphocytes # (Manual) 0.8 L Monocytes # (Manual) 0.5 RBC Morph Comment Normal Turbidity Sodium Potassium Chloride Carbon Dioxide Anion Gap BUN Creatinine Estimated Creat Clear GFR Calculation BUN/Creatinine Ratio Glucose Glucometer 186 140 Calculated Osmolality Calcium Icterus Index Specimen Hemolysis 04/24/18 04/24/18 04/24/18 05:09 06:21 11:51 WBC RBC Hgb Hct MCV MCH MCHC RDW Std Deviation Plt Count MPV Immature Gran % (Auto) Neut % (Auto) Lymph % (Auto) [place] % (Auto) Eos % (Auto) Baso % (Auto) Neut # (Auto) Lymph # (Auto) [place] # (Auto) Eos # (Auto) Baso # (Auto) Abs Immat Gran (auto) Neutrophils % (Manual) Band Neutrophils % Lymphocytes % (Manual) Monocytes % (Manual) Neutrophils # (Manual) Band Neutrophils # Lymphocytes # (Manual) Monocytes # (Manual) RBC Morph Comment Turbidity < 20 Sodium 145 Potassium 4.6 Chloride 103 Carbon Dioxide 36 H Anion Gap 6 BUN 20.0 Creatinine 0.6 L Estimated Creat Clear 203 GFR Calculation 138 BUN/Creatinine Ratio 33 H Glucose 130 H Glucometer 127 120 Calculated Osmolality 284 H Calcium 8.5 Icterus Index < 2 Specimen Hemolysis < 15 04/24/18 04/25/18 14:27 03:00 WBC RBC Hgb Hct MCV MCH MCHC RDW Std Deviation Plt Count MPV Immature Gran % (Auto) Neut % (Auto) Lymph % (Auto) [place] % (Auto) Eos % (Auto) Baso % (Auto) Neut # (Auto) Lymph # (Auto) [place] # (Auto) Eos # (Auto) Baso # (Auto) Abs Immat Gran (auto) Neutrophils % (Manual) Band Neutrophils % Lymphocytes % (Manual) Monocytes % (Manual) Neutrophils # (Manual) Band Neutrophils # Lymphocytes # (Manual) Monocytes # (Manual) RBC Morph Comment Turbidity < 20 Sodium 143 Potassium 4.2 Chloride 102 Carbon Dioxide 35 H Anion Gap 6 BUN 24.0 H Creatinine 0.8 D Estimated Creat Clear 152 GFR Calculation 99 BUN/Creatinine Ratio 30 H Glucose 98 Glucometer 119 Calculated Osmolality 279 Calcium 7.9 L Icterus Index < 2 Specimen Hemolysis < 15 Assessment and Plan (1) Acute and chronic respiratory failure with hypercapnia Status: Acute Assessment and plan: This is a patient with baseline hypercapnic respiratory failure, pCO2 58-69. The underlying cause appears to be severe airflow obstruction in the setting of asthma/copd overlap syndrome. He has a large amount of dust exposure at work, including grain dust. I recommend starting NIPPV at home. He will require a Trilogy home vent to mask. AVAPS-AE would be an appropriate setup for this patient. Use of home [id number] would benefit this patient by reducing his risk of recurrent hospitalization and . He also requires supplemental O2 at 2 lpm to maintain O2 >90%. Use of O2 will reduce risk of repeat hospitalization, deterioration of his condition and . We will plan to follow closely in the office once discharged. Current Visit: Yes (2) Asthma-COPD overlap syndrome Status: Acute Assessment and plan: I recommend continuing systemic corticosteroids in the form of prednisone 40 mg daily, with taper as an outpatient. I recommend startin ICS/LABA therapy with Symbicort 160, 2 puffs BID. Continue nebulized albuterol/iprat QID as needed for breakthrough symptoms. Recommend avoidance of dust and noxious odors at work. Plan outpatient regimen of: Symbicort 160/4.5 2 puffs BID nebulized albuterol/iprat QID prn Ventolin HFA as needed Wean prednisone by 10 mg every 3 days until off. Current Visit: Yes - Time Spent With Patient Total time spent is greater than 50% in coordination of care (as documented) at patient's floor/unit and/or counseling patient: less than 15 minutes
[2018-04-25 12:28] VITALS: BP 132/75; PULSE 57; RESP 20; TEMP 97.3; O2SAT 94
--- NOTE | 2018-04-25 13:29 | Discharge Summary ---
Discharge Information Date of admission: 04/22/18 18:54 Anticipated date of discharge: 04/25/18 Attending Physician: Francia Gee MD Primary care physician: Gregory Sands II, MD Consults: Consulting Provider: Hector Ann Reason For Exam: hypoxic and hypercapnic respiratory failure Recommendations I recommend continuing systemic corticosteroids in the form of prednisone 40 mg daily, with taper as an outpatient. I recommend startin ICS/LABA therapy with Symbicort 160, 2 puffs BID. Continue nebulized albuterol/iprat QID as needed for breakthrough symptoms. Recommend avoidance of dust and noxious odors at work. Plan outpatient regimen of: Symbicort 160/4.5 2 puffs BID nebulized albuterol/iprat QID prn Ventolin HFA as needed Wean prednisone by 10 mg every 3 days until off. Consulting Provider : Wound clinic Recommendations: Pt seen for wound consultation r/t right leg ulcers. Pt resting in bed, no complaints of pain. Pt in contact precautions for MRSA. Pt reports he has had bilateral lower leg edema for years. At home when he has sores on his legs open up he applies Neosporin, Coban, and compression stockings. Pt states he has had the wounds on his R lower leg for about 3 weeks. Bilateral lower legs: hemosiderin staining, +1 edema. R anterior/medial lower leg: scattered areas of crusts, sloughing dry skin, no open areas, no weeping. Composite measurement of R lower leg 18 (L) x 19 W) x 0.1 (D). Pt reports his legs are better than they use to be. Recommendations: moisturize bilateral lower legs daily, elevate , and continue compression as tolerated, elevate legs while in chair/bed. - Discharge Diagnosis (1) Acute and chronic respiratory failure with hypercapnia Status: Acute Problems Reviewed?: Yes Acute on chronic hypoxic and hypercapnic respiratory failure Asthma COPD overlap-likely due to dust and grain exposure Probable obstructive sleep apnea Severe pulmonary hypertension Biatrial dilatation, right ventricular dilation, LVH with possible outflow obstruction on echocardiogram Venous insufficiency Right lower extremity wound infection. Hypertension Osteoarthritis Gout Hyperglycemia secondary to steroids Morbid obesity - Procedures Procedures: Date of Exam: 04/23/18 Indication: bilat LE edema, hypoxia, rule out dvt PROCEDURE: US venous doppler LE BI: Findings: There is no evidence for acute deep venous thrombosis in either thigh. Specifically, serial graded compression was performed from the inguinal ligament to the popliteal bifurcation, bilaterally, demonstrating appropriate compressibility of the deep venous system. In addition, color and pulsed Doppler demonstrate appropriate spontaneous flow, variation with respiration, and augmentation with calf compression. At the ankle, normal flow is identified in the posterior tibial veins; these vessels are also normal in caliber. Impression: No evidence of acute DVT in either lower limb. Date of Exam: 04/23/18 Type of Exam(s): US echo doppler complete This is a two-dimensional echo with spectral Doppler, color-flow and M-mode. It was obtained in a patient with hypoxia edema. Left atrium is dilated. Left ventricular end-diastolic dimension is normal. Left ventricular wall thickness increased. LV systolic function is normal with ejection fraction of about 67%. Left ventricular outflow tract obstruction is possibly present with peak gradient of 50 and mean gradient of 24. Right atrium is dilated. Right ventricle is dilated. Aortic root dimension is normal. Mitral valve is morphologically normal with mild mitral regurgitation. Aortic valve is a trileaflet structure with no stenosis or insufficiency. Tricuspid valve shows mild tricuspid regurgitation with severe pulmonary hypertension with estimated pulmonary artery systolic pressure of 69. Pulmonary valve shows mild pulmonary insufficiency. There is no pericardial effusion. IMPRESSION 1. Biatrial dilation. 2. Right ventricular dilation. 3. Left ventricular hypertrophy with possible outflow obstruction with peak gradient of 50 and mean gradient of 24. 5. Normal LV systolic function with ejection fraction of about 67%. 6. Mild mitral regurgitation. 7. Mild tricuspid regurgitation with severe pulmonary hypertension with estimated pulmonary artery systolic pressure of 69. 8. Mild pulmonary insufficiency. - Laboratory Labs: dismissal labs 04/25/18 03:00 Sodium 143 Potassium 4.2 Chloride 102 Carbon Dioxide 35 H Anion Gap 6 BUN 24.0 H Creatinine 0.8 D Glucose 98 Calcium 7.9 L 04/24/18 05:09 WBC 15.2 H D RBC 4.66 Hgb 13.2 L Plt Count 245 Laboratory Tests 04/22/18 16:50 Troponin I < 0.012 NT-Pro-B Natriuret Pep 264 H Laboratory Tests 04/22/18 16:50 D-Dimer 548 H Laboratory Tests 04/23/18 04/23/18 04:07 08:34 ABG pH 7.380 ABG pCO2 58 H ABG pO2 62.3 L ABG HCO3 34.3 H ABG Total CO2 36.1 H ABG O2 Saturation 90.3 L ABG Base Excess 7.2 H VBG pH 7.300 L VBG pCO2 69.1 H VBG pO2 59.5 H VBG HCO3 34.0 H VBG Total CO2 36.1 H VBG O2 Saturation 86.3 VBG Base Excess 4.9 O2 Delivery Method Cannula FiO2 (liters per min) 2 - Radiology Radiology: Date of Exam: 04/22/18 Indication: hypoxia dyspnea requiring oxygen elevated d-dimer PROCEDURE: CT angio pulm emboli: Pulmonary arteries: Exam is diagnostic to the main pulmonary arterial level. There is no large or central saddle embolus. The segmental and subsegmental pulmonary arteries cannot be well evaluated due to contrast bolus. Other findings: No acute pneumonia, pleural effusion or pneumothorax. No concerning pulmonary nodules or masses. The central airways are patent. No axillary or mediastinal lymphadenopathy. Heart size is normal. Coronary artery calcifications. No pericardial effusion. The upper abdomen shows no acute findings. Impression: No large or central pulmonary embolus. = = = = = = = = = = = = = = = = = = = = = = = = = = = = = = = = = = = = = = = = = = = = = = = = = = = = = = = = = = = Date of Exam: 04/22/18 Indication: dyspnea, oxygen requiring PROCEDURE: XR chest 1V: FINDINGS: The lungs are clear. There is no abnormal airspace opacity, pleural effusion or pneumothorax identified. The heart size, pulmonary vasculature and mediastinum are within normal limits. No significant skeletal abnormality is seen. IMPRESSION: No acute cardiopulmonary abnormality. History of Present Illness HPI: Patient seen via telemedicine with nursing assistance on 04/22/2018 Mr. Esposito is a 57yo man with h/o essential HTN, class 3 obesity, dyslipidemia , DJD s/p bilateral knee replacements, and gout who has had YANEZ for months and was in PCPs office today for it. Had ED visit earlier in the year with presumed COPD with FEV1 today 1.35L and FVC 2.34L more consistent with a restrictive process due to obesity, but wheezing so obstruction evident as well (small airway testing results not known by me). No chest pain, fevers, chills, or cough. No nausea. No medication changes except furosemide increase to 60mg PO daily for LE edema, and started on antibiotic for said MRSA infection from cx. Objective Vital signs: Temperature 97.3 F 04/25/18 12:05 Pulse Rate 57 L 04/25/18 12:05 Respiratory Rate 20 04/25/18 12:05 Blood Pressure 132/75 04/25/18 12:05 Pulse Oximetry 94 04/25/18 12:05 Height/Weight/BMI: Height 1.78 m Weight 161 kg Body Mass Index 50.8 - Constitutional Present: no acute distress, well nourished, well developed, obese - Routine HEENT Exam Head: Present: normocephalic, atraumatic - Routine Respiratory Exam Present: decreased breath sounds, prolonged expiratory phase, wheezes ( expiratory with forced expiration) - Routine Cardiovascular Exam Present: RRR, no murmur - Routine Abdominal Exam Present: soft, non distended, non tender - Routine Extremities Exam Present: edema (chronic skin changes from chronic venous stasis), normal capillary refill - Routine Skin Exam Present: dry, warm - Routine Neurological Exam Present: alert, oriented X3 - Routine Lymphatic Exam Lymphatic: Absent: adenopathy - Routine Psychiatric Exam Present: normal affect, cooperative Hospital Course This is a general summary of the patient's hospital course. For more details refer to the complete medical record. Hospital course: 04/23/18 (Admitted overnight of the 6th) Consult Dr. Ann for respiratory failure with hypoxia and hypercapnia. I think the patient would likely benefit from BiPAP. Due to the patient's elevated d-dimer and CTA which did not look at the smaller arteries, will check venous Doppler of the legs. If negative for DVT will consider repeat CTA Place on telemetry Check EKG Discontinue steroids, the patient is a lifelong nonsmoker, doubt COPD obtain results of pulmonary function testing done yesterday Consult wound and skin regarding skin breakdown on the right lower extremity Obtain wound culture results if available Update med list Check Accu-Cheks and hemoglobin A1c regarding hyperglycemia Dietary consult Patient may benefit from a different antihypertensive other than Norvasc because of his lower extremity edema 04/24/18 Will continue corticosteroids in the form of prednisone 40 mg daily, with taper by 10 mg every 3 days. Start Symbicort 160/4.5 2 puffs BID, nebulized albuterol/iprat QID prn, Ventolin HFA as needed Symbicort 160, 2 puffs BID. Recommend avoidance of dust and noxious odors at work. Dr. Ann will not clear him to go back to work until after he sees him in 2- 3 weeks. He recommends patient contact his employer and find out the policy about use of oxygen on the job. If he continues to require oxygen during the day and his job does not allow oxygen while working, he may need to find a different job or file for disability. Case management arranged for patient to have a nebulizer, Trilogy event, and oxygen at home. Time spent with patient: discharge greater than 30 minutes Resuscitation Status: Full Code Discharge Plan - Discharge Disposition Discharge Date: 04/25/18 Disposition: 01 Discharged Home, Self-Care *Condition: Improved Reason For Visit (Visit label in EMR): COPD exacerbation - Discharge Medications *Discharge Medications: New Albuterol/Ipratropium [Duoneb] 3 ml AEROSOL QID PRN #30 each PRN Reason: SOA, cough, wheeze Benazepril [Lotensin] 20 mg PO HS #30 tab PredniSONE [Deltasone 20 mg] 40 mg PO WB #10 tab Continue Pantoprazole Sodium 20 mg PO ACB #30 Tramadol [Ultram] 50 mg PO QID PRN PRN Reason: Pain Celecoxib 200 mg PO DAILY Simvastatin [Zocor] 10 mg PO HS Furosemide [Lasix 20 mg Tab] 40 mg PO DAILY Allopurinol [Zyloprim] 200 mg PO DAILY Amoxicillin/Potassium Clav [Amox-Clav 875-125 mg Tablet] 1 each PO BID Metoprolol Tartrate [Lopressor] 25 mg PO BIDWM Ipratropium/Albuterol Sulfate [Iprat-Albut 0.5-3(2.5) mg/3 ml] 0.5 - 3 mg AEROSOL PRN PRN PRN Reason: Shortness Of Air Escitalopram [Lexapro] 1 tab PO DAILY Amoxicillin/Potassium Clav [Augmentin 875-125 Tablet] 1 each PO BID Aspirin [Adult Low Dose Aspirin EC] 81 mg PO DAILY Discontinued Amlodipine [Norvasc] 10 mg PO DAILY Benazepril HCl 10 mg PO DAILY - Discharge Packet/Instructions *Diet: Regular *Activity: As tolerated. You may not return to work until you have followed up with Dr. Ann in 2 weeks. *Pain Management/Treatment: Per Dr. Sands. *Wound Care: Complete the course of Augmentin you have at home. Additional Instructions: You will taper the Prednisone. Prescription was sent to your pharmacy. Stop your amlodipine and double your Benazepril. When you run out, there is a prescription for the higher 20 mg dose at the pharmacy. You will also have a prescription for the albuterol/ipratropium to use in the nebulizer when needed. You may also use your albuterol inhaler as needed if the nebulizer is not readily available. *Expected Signs/Symptoms: You may or may not be able to wean off of the oxygen. take your medications as directed. Dr. Ann has recommended that you remain off of work until you see him in his clinic in 2 weeks. I have printed off a work release for you. *Notify Physician if: You develop a fever or have increasing shortness of breath. *During Business Hours Contact: Dr. Sands's office or Dr. Ann's office *After Business Hours Contact: [facility] and have your doctor paged *Pending Lab/Results: No Pending Lab - Referrals/Follow Up *Referrals/Follow Up: Hector Ann MD [Physician] - 2 Weeks (APPOINTMENT 05/09 10:00.) Gregory Sands II, MD [Primary Care Provider] - 1 Week (APPOINTMENT 05/09AT 11: 15.) - Patient Handouts Patient Handouts: COPD (Chronic Obstructive Pulmonary Disease) (GEN) - Dismissal Complete Discharge Instructions are:: Complete Physician Narrative - Narrative Physician: Francia Gee MD Attestation Narrative: Date: 04/25/18 Time: 1540 I have independently evaluated and examined this patient. I reviewed the chart, the patient's history, and the ROLLOFF DRIVER/PA's documented findings as above. We discussed and formulated the assessment and plan as above with additions as below Mr. Esposito was seen earlier this afternoon at which time he indicated feeling significantly improved with repeat significantly reduced edema and improved ability to breathe. He had a number of questions regarding delivery of oxygen. I reiterated Dr. Ann's instruction that he could not return to work with portable oxygen until his employer's policy was clearly defined and following reassessment by Dr. Ann in the office in 2-3 weeks. Ambulatory oximetry earlier today demonstrated O2 saturation of 87% on room air with activity with resting saturation of 91% on room air prior to exertion. 1 L supplemental oxygen necessary with activity to maintain saturation above 90%. Examination reveals patient to be alert with nonlabored respirations and good airflow; breath sounds are clear. Stasis edema lateral lower extremities. Stable for discharge with 2 L supplemental oxygen with Trilogy at night and 1 L oxygen with activities. Blood pressure is stable and amlodipine remains on hold at time of discharge. Augmentin was resumed for wound infection of the right lower extremity demonstrating enterococcus and Propionibacterium.
--- NOTE | 2018-04-25 14:23 | Work/School Release ---
Work/School Release - Date Date: 04/25/18 - Work Release Remain off work/school for:: Until he has been cleared by Dr. Ann. Patient will be scheduled for an appointment with him in 2 weeks. Excused for:: hypoxia/lung disease
== END 2018-04-25 16:00 | disposition home or self-care (01) | DRG 189 ==
LOC: ED 16:17 → EDHOLD 18:54 → SUATTDRO 18:54 → MED 19:27
PROVIDERS: ADMIT Hospitalist; ATTEND Internal Medicine